=== PATIENT | female | born 1985 | race Caucasian/White ===

== ENCOUNTER 2016-03-25 10:59 | Emergency (ER) | payer OTHER | END 2016-03-25 12:06 | disposition left against medical advice (07) | LOC: UCEAST 10:59 | DX: L98.9 Disorder of the skin and subcutaneous tissue, unspecified (principal); Z53.21 Procedure and treatment not carried out due to patient leaving prior to being seen by health care provider ==

== ENCOUNTER 2016-03-25 12:23 | Emergency (ER) | payer OTHER ==
[2016-03-25 13:49] VITALS: BP 93/58
[2016-03-25] MEDS ORDERED: Ketorolac INJ* 60 MG/2 ML VIAL IM ONE (15:48)
--- NOTE | 2016-03-25 17:10 | ED ---
Skin Complaint - HPI Summary HPI Summary: 30 F presents with recent abscess of right buttock. She had a previous pilondial cyst that was treated with surgery many years ago in [place]. She denies any fever, constipation, or diarrhea. She was on a course of doxycycline 4 weeks ago that decreased abscess but it came back. - History of Current Complaint Chief Complaint: EDGeneral Time Seen by Provider: 03/25/16 15:37 Stated Complaint: ABCESS, Hx Last Menstrual Period: 02/19/15 Pain Intensity: 8 - Allergy/Home Medications Allergies/Adverse Reactions: Allergies Allergy/AdvReac Type Severity Reaction Status Date / Time Acetaminophen Allergy Intermediate Vomiting Verified 11/01/14 15:26 Tramadol Allergy Hives Verified 11/01/14 15:26 PMH/Surg Hx/FS Hx/Imm Hx Endocrine/Hematology History: Denies: Hx Blood Disorders, Hx Diabetes, Other Endocrine/Hematological Disorders Cardiovascular History: Reports: Other Cardiovascular Problems/Disorders - PALPITATIONS Denies: Hx Hypertension Respiratory History: Reports: Hx Asthma Denies: Other Respiratory Problems/Disorders GI History: Denies: Other GI Disorders History: Denies: Other Problems/Disorders Musculoskeletal History: Reports: Hx Arthritis - Back, Hx Scoliosis - TOLD SHE HAS SCOLIOSIS Denies: Other Musculoskeletal History Sensory History: Denies: Other Sensory Impairments Opthamlomology History: Denies: Other Sensory Impairments Neurological History: Reports: Hx Migraine Denies: Hx Headaches, Other Neuro Impairments/Disorders Psychiatric History: Reports: Hx Anxiety, Hx Depression, Hx Bipolar Disorder Denies: Other Psychiatric Issues/Disorders - Surgical History Surgery Procedure, Year, and Place: Infectious Disease History: No Infectious Disease History: Reports: Hx Hepatitis - hep c Denies: History Other Infectious Disease, Traveled Outside the in Last 30 Days - Family History Known Family History: Positive: Unknown, Other - leukemia, blood clots ( grandfather) - Social History Alcohol Use: None Hx Substance Use: Yes Substance Use Type: Reports: None Substance Use Comment - Amount & Last Used: 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, 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 Smoking Status (MU): Former Smoker Type: Cigarettes Amount Used/How Often: 1/2 PPD Have You Smoked in the Last Year: Yes Review of Systems Negative: Fever Negative: Chest Pain Negative: Shortness Of Breath Positive: Other - abscess of right buttock All Other Systems Reviewed And Are Negative: Yes Physical Exam Triage Information Reviewed: Yes Vital Signs On Initial Exam: Initial Vitals Temp Pulse Resp BP Pulse Ox 97.8 F 107 18 122/78 100 03/25/16 12:25 03/25/16 12:25 03/25/16 12:25 03/25/16 12:25 03/25/16 12:25 Vital Signs Reviewed: Yes Appearance: Positive: Well-Appearing Skin: Positive: Other - 3 cm by 3cm abscess located on glutteal cleft on right side of buttock Head/Face: Positive: Normal Head/Face Inspection Eyes: Positive: Normal, Conjunctiva Clear ENT: Positive: Normal ENT inspection, Pharynx normal, TMs normal Respiratory/Lung Sounds: Positive: Clear to Auscultation, Breath Sounds Present Cardiovascular: Positive: Normal, RRR Procedures - Incision and Drainage Site: right buttock abscess Anesthesia: Topical Instrument(s): Scalpel Diagnostics - Vital Signs Vital Signs Temp Pulse Resp BP Pulse Ox 03/25/16 13:48 98.5 F 88 16 93/58 100 03/25/16 12:25 97.8 F 107 18 122/78 100 - Laboratory Lab Statement: Any lab studies that have been ordered have been reviewed, and results considered in the medical decision making process. Course/Dx - Course Course Of Treatment: 30 F presents with abscess to right buttock. denies any fever. area of loculated noted on exam, cleaned and placed 2 cm laceration in center of abscess which drained large amount of foul smelling material, did not place packing due to location of abscess, obtained culture, will place on doxcycline due to improvement on antibiotic before, will have follow up with primary and potential surgery for recurrency of abscess although this abscess is not a pilondial cyst, patient understands and agrees with plan - Differential Diagnoses - Skin Complaint Differential Diagnoses: Abscess, Cellulitis, Contact Dermatitis - Diagnoses Provider Diagnoses: Abscess of buttock, left Discharge - Discharge Plan Condition: Good Disposition: HOME Prescriptions: DOXYcycline CAP(*) [DOXYcycline 100MG CAP(*)] 100 mg PO BID #19 cap Patient Education Materials: Abscess Incision and Drainage (ED) Referrals: No Primary Care Phys,NOPCP [Primary Care Provider] - Additional Instructions: Take antibiotics twice a day for 10 days Follow up with primary Consider following up with surgery in the future if reoccurs Return to ED if develop fever or any new or worsening symptoms Addendum entered and electronically signed by Nidia Munoz PA 03/26/16 08: 36: ED Addendum Addendum: Diagnosis: abscess of right buttock
[2016-03-25] MEDS ORDERED: DOXYcycline CAP(*) 100 MG PO ONE (17:15)
--- NOTE | 2016-03-28 14:16 | ED ---
Progress - Progress Note Progress Note: Pt's wound cx reveals Finegoldia Magna - she had an abscess that was I&D'd on day of assessment and tx - she was restarted on doxycycline as pt reports this has helped in the past. The current organism identified appears to be most susceptible to PCN, cephalosporins and clindamycin. Called pt to update sx but phone stated "voicemail box has not been set up -please try again later". Her next of kin was then called, Anjali Saulo. Anjali agreed to contact pt and relay the message for her to call to discuss test results. Will mail letter to pt as well. If pt is improving s/p I&D and with taking doxycycline, no change in plan. However, if she' not improving, will switch anbx and have her f/u w/ surgery. Course/Dx - Course Course Of Treatment: 30 F presents with abscess to right buttock. denies any fever. area of loculated noted on exam, cleaned and placed 2 cm laceration in center of abscess which drained large amount of foul smelling material, did not place packing due to location of abscess, obtained culture, will place on doxcycline due to improvement on antibiotic before, will have follow up with primary and potential surgery for recurrency of abscess although this abscess is not a pilondial cyst, patient understands and agrees with plan - Diagnoses Provider Diagnoses: Abscess of buttock, left Addendum entered and electronically signed by Anita Saucedo PA 03/29/16 15:44: ED Addendum Addendum: tamara Yuan, mailed letter to pt. Addendum entered and electronically signed by Blue Pinto MD 04/02/16 22: 54: ED Addendum Addendum: Suzanne
== END 2016-03-25 17:26 | disposition home or self-care (01) ==
LOC: ED 12:23
DX: L02.31 Cutaneous abscess of buttock (principal); Z87.891 Personal history of nicotine dependence; B19.20 Unspecified viral hepatitis C without hepatic coma
CPT/HCPCS: 10060; 87070; 87076; 87205; 87640; 87641; 96372; 99282; A9270-GY; J1885

== ENCOUNTER 2016-04-17 16:50 | Emergency (ER) | payer OTHER ==
[2016-04-17 17:41] VITALS: BP 103/61
== END 2016-04-17 22:10 | disposition left against medical advice (07) ==
LOC: ED 16:50
DX: R42 Dizziness and giddiness (principal); Z53.21 Procedure and treatment not carried out due to patient leaving prior to being seen by health care provider

== ENCOUNTER 2016-06-20 06:41 | Day surgery (SDC) | payer OTHER ==
[~2016-06-20 06:41] MED LIST: Buffered Lidocaine 1% SYRIN* 3 ML/SYR SYRINGE INTRADERM ONE
[2016-06-20] MEDS ORDERED: ceFOXitin 2 GM IVPREMIX* 2 GM/50 ML BAG ONE (06:48)
[2016-06-20] MEDS ORDERED: Bupivacaine 0.25% EPI 200,000* 30 ML SDV ONE (07:24)
[2016-06-20] MEDS ORDERED: Lidocaine 2% JELLY* 6 ML JELLY TOPICAL ONE (07:24)
[2016-06-20] MEDS ORDERED: Chloroprocaine 2%* 20 ML VIAL ONE (07:30)
[2016-06-20] MEDS ORDERED: Midazolam* 1 MG/ML 5 ML VIAL (5 MG) ONE (07:30)
[2016-06-20] MEDS ORDERED: Propofol* 10 MG/ML 20 ML BTL IV PUSH ONE (07:43)
[2016-06-20] MEDS ORDERED: Lidocaine 2% PF * 5 ML VIAL ONE (07:43)
[2016-06-20] MEDS ORDERED: Ketorolac INJ* 30 MG/ML 1 ML VIAL ONE (09:16)
[2016-06-20 10:32] VITALS: BP 98/60
--- NOTE | 2016-06-20 11:42 | OP ---
DATE OF OPERATION: 06/20/16 - [facility] DATE OF : 85 SURGEON: Kanu Wallace MD [employer]OX [employer]UCK [employer]NER OPERATOR: None. ANESTHESIOLOGIST: Dr. Alegria. ANESTHESIA: Spinal anesthetic, local infiltration. PRE-OP DIAGNOSIS: Anal fistula. POST-OP DIAGNOSIS: Anal fistula. OPERATIVE PROCEDURE: Anoscopy and fistulotomy. DESCRIPTION OF PROCEDURE: The patient was supine on the operating table. After adequate spinal anesthetic, compression stockings, Lavern Hugger warmer and intravenous antibiotics, she was put in the prone celio-knife position with the buttocks taped apart. Anoscopy was carried out. There was an external- appearing fistulous tract at approximately the 2 o'clock position, may be 4 cm from the anus. A probe was placed and no internal communication was able to be identified. An angiocatheter was used to inject peroxide into the site under pressure, and, again, no internal communication was identified. This cavity was then filleted open and the cavity was approximately 1 x 3 cm with a fibrotic base and chronic soupy granulation. This was swabbed out to eliminate the soupy granulation and was thus left open. On the left side, approximately 11 o'clock position, 3 cm from the anal verge, there was an area of firm induration that appears to be maybe a little subcutaneous cyst or fibrosis. This was opened up, but no pus was identified. This was left open. Local anesthetic was administered. Bulky gauze dressing was placed. She tolerated the procedure well and was brought to Recovery in good condition. No complications. No drains. No pathologic specimens. Sponge and instrument counts correct. Estimated blood loss was 10 mL. CC: Dr. Barnett* [id number]/[facility] #: [id number] [facility]
== END 2016-06-20 11:27 | disposition home or self-care (01) ==
LOC: OR 06:41
PROVIDERS: ATTEND Surgery
DX: K60.3 Anal fistula (principal); R00.2 Palpitations; J45.909 Unspecified asthma, uncomplicated; F17.210 Nicotine dependence, cigarettes, uncomplicated; B18.2 Chronic viral hepatitis C; F31.9 Bipolar disorder, unspecified; Z33.1 Pregnant state, incidental
CPT/HCPCS: J0694; J1885; J2250; J2400; J2704

== ENCOUNTER 2016-11-24 22:09 | Inpatient (IN) | payer OTHER ==
[2016-11-24] MEDS ORDERED: ceFOXitin 2 GM IVPREMIX* 2 GM/50 ML BAG ONE (22:35)
[2016-11-24] MEDS ORDERED: ceFOXitin 2 GM IVPREMIX* 2 GM/50 ML BAG IVPB ONE (22:36)
[2016-11-24] MEDS ORDERED: Sodium Citrate/Citric Acid* 15 ML UDC PO ONE (22:36)
[2016-11-24] MEDS ORDERED: Sodium Citrate/Citric Acid* 15 ML UDC ONE (22:36)
[2016-11-24 22:52] LABS: Hematocrit 36 % (35-47); Hemoglobin 12.6 g/dl (12.0-16.0); Mean Corpuscular HGB Conc 35 g/dl (31-36); Mean Corpuscular Hemoglobin 32 pg (27-31); Mean Corpuscular Volume 93 fL (80-97); Mean Platelet Volume 10 um3 (7.4-10.4); Red Blood Count 3.89 10^6/ul (4.0-5.4); Red Cell Distribution Width 13 % (10.5-15); White Blood Count 9.7 10^3/ul (3.5-10.8)
[2016-11-24] MEDS ORDERED: Morphine PF AMP (0.5MG/ML)* 5 MG/10 ML AMP ONE (22:52)
[2016-11-24] MEDS ORDERED: Phenylephrine IV* 40 MCG/ML 10 ML SYRINGE ONE (22:52)
[2016-11-24] MEDS ORDERED: OXYTOCIN* 10 UNITS/ML 1 ML VIAL ONE (22:52)
[2016-11-24] MEDS ORDERED: fentaNYL* 50 MCG/ML 2 ML VIAL (100 MCG VIAL) IV PRN (23:30)
[2016-11-24] MEDS ORDERED: Ketorolac INJ* 30 MG/ML 1 ML VIAL IV PRN (23:30)
[2016-11-24] MEDS ORDERED: Ondansetron INJ* 2 MG/ML VIAL IV PRN ×2 (23:30→23:32)
[2016-11-24] MEDS ORDERED: oxyCODONE TAB* 5 MG TAB PO PRN (23:32)
[2016-11-24] MEDS ORDERED: diPHENhydraMINE IV* 50 MG/ML 1 ml VIAL (BENADRYL) IV PRN (23:32)
[2016-11-24] MEDS ORDERED: Naloxone* 0.4 MG/ML 1 ML VIAL IV PRN (23:32)
[2016-11-25] MEDS ORDERED: Witch Hazel PAD* JAR TOPICAL PRN (00:12)
[2016-11-25] MEDS ORDERED: Tetan/Diph/Pertus SYR(Tdap)* 0.5 ML SYR(BOOSTRIX) use SYR IM ONE (00:12)
[2016-11-25] MEDS ORDERED: Acetaminophen TAB* 325 MG PO PRN (00:12)
[2016-11-25] MEDS ORDERED: Measles, Mumps,Rubella VACC* 0.5 ML/VIAL SUBCUT ONE (00:12)
[2016-11-25] MEDS ORDERED: Dibucaine 1% 28.35 GM TUBE PR PRN (00:12)
[2016-11-25] MEDS ORDERED: Glycerin ADULT SUPP PR PRN (00:12)
[2016-11-25] MEDS ORDERED: Oxytocin in LR* 20 UNITS/1,000 ML BAG IVPB SCH (01:00)
[2016-11-25] MEDS: Nicotine PATCH 7 MG/24 HR* PATCH TRANSDERM SCH ×2 (05:25→09:18)
--- NOTE | 2016-11-25 06:54 | OP ---
DATE OF OPERATION: 11/24/16 - ROOM #[facility] #114 DATE OF : 85 SURGEON: Levi Metcalf MD CANE WEIGHER: Migdalia Davies CNM ANESTHESIA: Spinal. PRE-OP DIAGNOSIS: Elective repeat section and desires permanent sterilization. POST-OP DIAGNOSIS: Elective repeat section and desires permanent sterilization. OPERATIVE PROCEDURE: Low transverse section and bilateral tubal ligation. ESTIMATED BLOOD LOSS: 600 cc. FINDINGS: This is a 31-year-old 2, para 1 with previous section desired an elective repeat and bilateral tubal ligation. She presented at 37 plus weeks in active labor. She was 7 cm dilated upon admission to Labor and Delivery, and she and I discussed the risks, benefits, alternatives, indications for section and bilateral tubal ligation and we proceeded with procedure as planned. At the time of procedure, she had a viable male. Apgars were 9 and 9, and weight was 7 pounds 0 ounces. She had normal appearing uterus, fallopian tubes, and ovaries. DESCRIPTION OF PROCEDURE: The patient identified, procedure identified as low transverse section. The patient was taken to the operating room, prepped and draped in the usual fashion in the left lateral recumbent position under spinal anesthesia. A Pfannenstiel incision was made on the abdomen and carried down through fat, fascia, and peritoneum. A bladder flap was created with a sharp and blunt dissection. A transverse incision was made in the lower uterine segment, extended laterally using blunt dissection. The cord was doubly clamped and cut, and the infant was delivered through the incision with ease. Cord was doubly clamped and cut, and the infant was handed to the awaiting sales data analyst. Cord blood was obtained. Placenta delivered spontaneously. The uterus was wiped out with wet lap sponge. The uterine incision was then closed using 0 Polysorb in a running fashion. A second layer was used to imbricate the first layer. Good hemostasis achieved with 0 Polysorb [id number] sutures. The right fallopian tube was grasped at its fimbriated end with June clamp, clamped, ligated x2 and the fimbria was excised. Same procedure was carried out on the left, following it out to its fimbriated end. Good hemostasis was verified. The uterus was placed back into the abdominal cavity. The uterine incision was again found to be hemostatic by using 0 Polysorb [id number] sutures. The pedicles on the fallopian tubes were inspected and found to be hemostatic. Peritoneum was then closed using 3- 0 Polysorb in a running fashion. Good hemostasis achieved in the subrectus layers. The fascia was closed using 0 Polysorb in a running fashion. Good hemostasis achieved in the subcu. Copious irrigation was utilized and suctioned out and the skin was closed with 4-0 Monocryl in a subcuticular fashion. Mastisol and Steri-Strips were applied, and the patient returned to the recovery room in stable condition. All sponge and instrument counts were correct. [id number]/[facility] #: [id number] [facility]
[2016-11-25] MEDS: Buprenorphine TAB* 8 MG PO SCH (08:57)
[2016-11-25] MEDS: Simethicone TAB* 80 MG TAB.CHEW PO SCH ×4 (08:57→21:29)
[2016-11-25] MEDS: Docusate CAP* 100 MG PO SCH ×3 (08:57→21:29)
[2016-11-25] MEDS: Gabapentin CAP(*) 400 MG PO SCH ×3 (08:58→21:31)
[2016-11-25] MEDS: Ketorolac INJ* 30 MG/ML 1 ML VIAL IV PRN ×2 (08:58→14:43)
[2016-11-25] MEDS ORDERED: Mouth Piece, Nicotine* 1 EACH CARTRIDGE ONE ×2 (09:09→13:21)
[2016-11-25] MEDS: Nicotine Inhaler* 10 MG AMP INH PRN ×3 (09:17→21:29)
[2016-11-25] MEDS ORDERED: Zolpidem TAB* 5 MG PO PRN (15:00)
[2016-11-25] MEDS ORDERED: Buprenorphine TAB* 2 MG TAB.SL PO SCH (18:00)
[2016-11-25] MEDS: Ibuprofen TAB* 600 MG PO PRN (21:29)
[2016-11-26] MEDS: Ibuprofen TAB* 600 MG PO PRN ×2 (03:46→22:07)
[2016-11-26 06:46] LABS: Hematocrit 33 % (35-47); Hemoglobin 11.4 g/dl (12.0-16.0); Mean Corpuscular HGB Conc 35 g/dl (31-36); Mean Corpuscular Hemoglobin 33 pg (27-31); Mean Corpuscular Volume 94 fL (80-97); Mean Platelet Volume 10 um3 (7.4-10.4); Red Blood Count 3.47 10^6/ul (4.0-5.4); Red Cell Distribution Width 13 % (10.5-15); White Blood Count 6.1 10^3/ul (3.5-10.8)
[2016-11-26 08:11] VITALS: BP 121/71
[2016-11-26] MEDS: Nicotine PATCH 7 MG/24 HR* PATCH TRANSDERM SCH (08:17)
[2016-11-26] MEDS: Simethicone TAB* 80 MG TAB.CHEW PO SCH ×3 (08:58→19:44)
[2016-11-26] MEDS: Buprenorphine TAB* 8 MG PO SCH (08:59)
[2016-11-26] MEDS ORDERED: Ferrous Gluconate TAB* 324 MG TAB PO SCH (09:00)
[2016-11-26] MEDS: Docusate CAP* 100 MG PO SCH ×3 (09:00→19:44)
[2016-11-26] MEDS: Gabapentin CAP(*) 400 MG PO SCH ×3 (09:02→19:43)
[2016-11-26] MEDS ORDERED: oxyCODONE TAB* 5 MG TAB ONE (14:44)
[2016-11-26] MEDS: Nicotine Inhaler* 10 MG AMP INH PRN (19:42)
[2016-11-26] MEDS: oxyCODONE TAB* 5 MG TAB PO PRN (19:44)
[2016-11-26] MEDS ORDERED: oxyCODONE TAB* 5 MG TAB PO PRN (20:00)
[2016-11-27] MEDS: oxyCODONE TAB* 5 MG TAB PO PRN ×3 (00:47→10:58)
[2016-11-27] MEDS: Simethicone TAB* 80 MG TAB.CHEW PO SCH ×2 (06:16→09:05)
[2016-11-27] MEDS: Ibuprofen TAB* 600 MG PO PRN (06:26)
[2016-11-27] MEDS: Nicotine Inhaler* 10 MG AMP INH PRN (06:27)
[2016-11-27] MEDS: Nicotine PATCH 7 MG/24 HR* PATCH TRANSDERM SCH (09:04)
[2016-11-27] MEDS: Gabapentin CAP(*) 400 MG PO SCH (10:57)
[2016-11-27] MEDS: Docusate CAP* 100 MG PO SCH (10:59)
== END 2016-11-27 12:59 | disposition home or self-care (01) | DRG 540 ==
LOC: MCHOBOUT 22:09 → MCHOB 22:25 → EEVIPCON 22:25 → MCHOB 11-25 04:20
PROVIDERS: ADMIT Obstetrics & Gynecology; ATTEND Obstetrics & Gynecology
PROC: 10D00Z1 Extraction of Products of Conception, Low, Open Approach (ICD-10-PCS; 2016-11-24)
PROC: 0UB70ZZ Excision of Bilateral Fallopian Tubes, Open Approach (ICD-10-PCS; 2016-11-24)
PROC: 4A1HXCZ Monitoring of Products of Conception, Cardiac Rate, External Approach (ICD-10-PCS; principal; 2016-11-24 22:54)
DX: O34.211 Maternal care for low transverse scar from previous cesarean delivery (principal); F17.210 Nicotine dependence, cigarettes, uncomplicated; O99.334 Smoking (tobacco) complicating childbirth; O99.824 Streptococcus B carrier state complicating childbirth; O77.0 Labor and delivery complicated by meconium in amniotic fluid; Z3A.37 37 weeks gestation of pregnancy; Z37.0 Single live birth; Z88.8 Allergy status to other drugs, medicaments and biological substances; Z30.2 Encounter for sterilization
CPT/HCPCS: 36415; 85025; 86850; 86900; 86901; 88302; A9270-GY; J0694; J1885; J2590; J3010

== ENCOUNTER 2017-07-31 04:44 | Emergency (ER) | payer OTHER ==
[2017-07-31] MEDS ORDERED: predniSONE TAB* 20 MG PO ONE (05:16)
[2017-07-31] MEDS ORDERED: ValACYclovir (*) 1 GM TAB PO ONE (05:16)
--- NOTE | 2017-07-31 05:33 | ED ---
Sharla Young Elizabeth, scribed for Tonie Wilson MD on 07/31/17 at 0515 . Neurological HPI - HPI Summary HPI Summary: This patient is a 31 year old F presenting to [facility] with a chief complaint of right ear pain since 3 days ago. Patient reports strain, sharp pain in the right side of her neck and cheek. Patient reports numbness in right side of tongue and right eyebrow. The patient notes that she had Aniwa Palsy in 2016 on the left side and that her current sensations seem the same. The patient rates the pain 9/10 in severity. Symptoms aggravated by nothing. Symptoms alleviated by nothing. The patient reports that she has been tested for lyme disease before. Patient has been taking ibuprofen for the pain. LNMP was 1 week ago. - History of Current Complaint Chief Complaint: EDEarPain Stated Complaint: GENERAL ILLNESS Hx Obtained From: Patient Hx Last Menstrual Period: 02/19/15 Onset/Duration: Sudden Onset, Started days ago - 3 days ago, Still Present Timing: Constant Onset Severity: Moderate Current Severity: Moderate Neurological Deficit Location: Facial Pain Intensity: 9 Pain Scale Used: 0-10 Numeric Character: Numbness/Tingling - in right eyebrow, right side of tongue, Other: - pain in right ear, right cheek and right neck Aggravating: Nothing Alleviating: Nothing Associated Signs and Symptoms: Positive: Pain - in right cheeck, right side of neck, Numbness - in right eyebrow, right side of tongue - Allergy/Home Medications Allergies/Adverse Reactions: Allergies Allergy/AdvReac Type Severity Reaction Status Date / Time acetaminophen Allergy vomiting, Verified 07/31/17 04:53 tongue swelling, hives lamotrigine [From Lamictal] Allergy Shortness Verified 07/31/17 04:53 of Breath tramadol Allergy hives, Verified 07/31/17 04:53 tongue swelling. PMH/Surg Hx/FS Hx/Imm Hx Endocrine/Hematology History: Denies: Hx Blood Disorders, Hx Diabetes, Other Endocrine/Hematological Disorders Cardiovascular History: Reports: Other Cardiovascular Problems/Disorders - PALPITATIONS Denies: Hx Hypertension Respiratory History: Reports: Hx Asthma - has not need inhaler in a long time Denies: Other Respiratory Problems/Disorders GI History: Reports: Other GI Disorders - anal fistula History: Denies: Other Problems/Disorders Musculoskeletal History: Reports: Hx Arthritis - Back lower, Hx Scoliosis - TOLD SHE HAS SCOLIOSIS Denies: Other Musculoskeletal History Sensory History: Denies: Hx Contacts or Glasses, Hx Hearing Aid, Other Sensory Impairments Opthamlomology History: Denies: Hx Contacts or Glasses, Other Sensory Impairments Neurological History: Reports: Hx Migraine, Hx Nerve Disease - severe nerve damage from waist down Denies: Hx Headaches, Other Neuro Impairments/Disorders Psychiatric History: Reports: Hx Anxiety, Hx Depression - Bipolar disorder, Hx Bipolar Disorder, Hx Substance Abuse Denies: Other Psychiatric Issues/Disorders - Surgical History Surgery Procedure, Year, and Place: 11-12 years ago. pilonidal cyst removed 11-12 years Hx Anesthesia Reactions: No Infectious Disease History: No Infectious Disease History: Reports: Hx Hepatitis - hep C - was recently tested , shows doesn't have anymore Denies: History Other Infectious Disease, Traveled Outside the [place] in Last 30 Days - Family History Known Family History: Positive: Other - leukemia, blood clots (grandfather) - Social History Alcohol Use: None Hx Substance Use: Yes Substance Use Type: Reports: Prescribed Substance Use Comment - Amount & Last Used: Suboxone, in treatment for opiate addiction Smoking Status (MU): Heavy Every Day Tobacco Smoker Type: Cigarettes Amount Used/How Often: 1pack qd Have You Smoked in the Last Year: Yes Review of Systems Negative: Fever Positive: Ear Ache - right ear pain, Other - numbness on right side of tongue Negative: Shortness Of Breath Negative: Vomiting Neurological: Other - pain in right cheek, pain in right side of neck All Other Systems Reviewed And Are Negative: Yes Physical Exam - Summary Physical Exam Summary: VITAL SIGNS: Reviewed. GENERAL: ~Patient is a well-developed and nourished FEMALE who is lying comfortable in the stretcher. Patient is not in any acute respiratory distress. HEAD AND FACE: No signs of trauma. No ecchymosis, hematomas or skull depressions. No sinus tenderness. Right side peripheral facial weakness EYES: PERRLA, EOMI x 2, No injected conjunctiva, no nystagmus. EARS: Hearing grossly intact. Ear canals and tympanic membranes are within normal limits. MOUTH: Oropharynx within normal limits. NECK: Supple, trachea is midline, no adenopathy, no JVD, no carotid bruit, no c- spine tenderness, neck with full ROM. CHEST: Symmetric, no tenderness at palpation LUNGS: Clear to auscultation bilaterally. No wheezing or crackles. CVS: Regular rate and rhythm, S1 and S2 present, no murmurs or gallops appreciated. ABDOMEN: Soft, non-tender. No signs of distention. No rebound no guarding, and no masses palpated. Bowel sounds are normal. EXTREMITIES: FROM in all major joints, no edema, no cyanosis or clubbing. NEURO: Alert and oriented x 3. Right side peripheral facial weakness. Speech is normal and follows commands. SKIN: Dry and warm Triage Information Reviewed: Yes Vital Signs On Initial Exam: Initial Vitals Temp Pulse Resp BP Pulse Ox 97.7 F 98 16 128/89 100 07/31/17 04:47 07/31/17 04:47 07/31/17 04:47 07/31/17 04:47 07/31/17 04:47 Vital Signs Reviewed: Yes Diagnostics - Vital Signs Vital Signs Temp Pulse Resp BP Pulse Ox 07/31/17 05:01 105 96 07/31/17 04:59 97 114/90 95 07/31/17 04:47 97.7 F 98 16 128/89 100 - Laboratory Lab Statement: Any lab studies that have been ordered have been reviewed, and results considered in the medical decision making process. Course/Dx - Course Course Of Treatment: Patient is a 31 y/o F reporting right ear pain, right-side neck pain, right cheek pain, numbness in right eyebrow and numbness in right- side of tongue since 3 days ago. The patient notes that she had Aniwa Palsy in 2016 on the left side and that her current sensations seem the same. In the ED course the patient was given prednisone and Valtrex. Patient will be discharged home with dx of UTI and Mena Palsy, prescription for artifical tears , prednisone, valtrex and follow up from primary care physician. The patient is agreeable with this plan. - Diagnoses Provider Diagnoses: Mena's palsy Discharge - Sign-Out/Discharge Documenting (check all that apply): Discharge/Admit/Transfer - Discharge Plan Condition: Stable Disposition: HOME Discharge Disposition Comment: discharge home Prescriptions: Artificial Tears* 15 ML BTL [Polyvinyl Alcohol 1.4% OPTH*] 1 drop RIGHT EYE Q2H PRN #1 btl PRN Reason: Dry Eye predniSONE TAB* [Deltasone 20 MG TAB*] 60 mg PO DAILY #18 tab ValACYclovir (*) [Valtrex 1 GM(*)] 1 gm PO TID #20 tab Patient Education Materials: Mena Palsy (ED) Referrals: Guille Tanner MD [Primary Care Provider] - 2 Days Additional Instructions: Follow up with primary care physician in 1-2 days. Return to the emergency department with any new or worsening symptoms. The documentation as recorded by the Sharla cheek Elizabeth accurately reflects the service I personally performed and the decisions made by Katie moreno Abdul, MD.
[2017-07-31 06:04] VITALS: BP 108/79
== END 2017-07-31 06:02 | disposition home or self-care (01) ==
LOC: ED 04:44
DX: G51.0 Bell's palsy (principal); N39.0 Urinary tract infection, site not specified; F17.210 Nicotine dependence, cigarettes, uncomplicated; Z86.19 Personal history of other infectious and parasitic diseases; Z88.6 Allergy status to analgesic agent; Z88.8 Allergy status to other drugs, medicaments and biological substances; Z88.5 Allergy status to narcotic agent
CPT/HCPCS: 86618; 99282; A9270-GY; J7512

== ENCOUNTER 2019-03-08 14:29 | Emergency (ER) | payer OTHER ==
[2019-03-08] MEDS ORDERED: NS 0.9% 1000 ML** 1,000 ML IV ONE (15:04)
--- NOTE | 2019-03-08 15:04 | ED ---
Abdominal Pain/Female - HPI Summary HPI Summary: Patient complains of left upper quadrant pain radiating down into left thigh 2 days. Left thigh pain lasted yesterday for 6 hours, has since resolved, without return. Patient was seen here on 02/26/19 for left upper quadrant pain, diagnosed with subacute splenic laceration. Patient states pain started weeks before that first evaluation, stating she woke up with that pain. Denied trauma. Surgery was consulted on eval on 02/26 and on recommendation of surgeon patient was discharged with follow-up in a few days. Patient did not follow-up with surgeon. States pain started to resolve but then came back worse yesterday. Pain radiating to left thigh is new onset. Pain is associated with nausea, sometimes worse after eating. Denies trauma, fever, cough, sore throat , CP, SOB, V/D, change in urine, change in BM, vaginal symptoms. Medical history is asthma. Abdominal surgical history C-sections. Patient has prescription for Suboxone which was filled on 02/22/19, but patient denies taking Suboxone. - History of Current Complaint Chief Complaint: EDAbdPain Stated Complaint: LACERATION SPLEEN, LEFT LEG PAIN Time Seen by Provider: 03/08/19 15:02 Hx Obtained From: Patient Hx Last Menstrual Period: 02/19/15 Onset/Duration: Sudden Onset, Lasting Days Timing: Constant Severity Initially: Severe Severity Currently: Severe Pain Intensity: 10 Pain Scale Used: 0-10 Numeric Location: Discrete At: LUQ Radiates: Yes Radiates to: Other Character: Sharp Aggravating Factor(s): Food, Movement Alleviating Factor(s): Nothing Associated Signs and Symptoms: Positive: Nausea Allergies/Adverse Reactions: Allergies Allergy/AdvReac Type Severity Reaction Status Date / Time acetaminophen Allergy vomiting, Verified 03/08/19 14:40 tongue swelling, hives lamotrigine [From Lamictal] Allergy Shortness Verified 03/08/19 14:40 of Breath tramadol Allergy hives, Verified 03/08/19 14:40 tongue swelling. PMH/Surg Hx/FS Hx/Imm Hx Endocrine/Hematology History: Denies: Hx Blood Disorders, Hx Diabetes, Other Endocrine/Hematological Disorders Cardiovascular History: Reports: Other Cardiovascular Problems/Disorders - PALPITATIONS Denies: Hx Hypertension Respiratory History: Reports: Hx Asthma - has not need inhaler in a long time Denies: Other Respiratory Problems/Disorders GI History: Reports: Other GI Disorders - anal fistula History: Denies: Hx Renal Disease, Other Problems/Disorders Musculoskeletal History: Reports: Hx Arthritis - Back lower, Hx Scoliosis - TOLD SHE HAS SCOLIOSIS Denies: Other Musculoskeletal History Sensory History: Denies: Hx Contacts or Glasses, Hx Hearing Aid, Other Sensory Impairments Opthamlomology History: Denies: Hx Contacts or Glasses, Other Sensory Impairments Neurological History: Reports: Hx Migraine, 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 pilonidal cyst removed 11-12 years Hx Anesthesia Reactions: No - Immunization History Date of Influenza Vaccine: none Infectious Disease History: No Infectious Disease History: Reports: Hx Hepatitis - hep C - was recently tested , shows doesn't have anymore Denies: History Other Infectious Disease, Traveled Outside the [place] in Last 30 Days - Family History Known Family History: Positive: Unknown, Other - leukemia, blood clots ( grandfather) - Social History Alcohol Use: None Hx Substance Use: Yes Substance Use Type: Reports: Prescribed Substance Use Comment - Amount & Last Used: Suboxone, in treatment for opiate addiction Smoking Status (MU): Heavy Every Day Tobacco Smoker Type: Cigarettes Amount Used/How Often: 1pack qd Have You Smoked in the Last Year: Yes Review of Systems Constitutional: Negative Eyes: Negative ENT: Negative Cardiovascular: Negative Respiratory: Negative Positive: Abdominal Pain, Nausea Genitourinary: Negative Musculoskeletal: Negative Skin: Negative Neurological: Negative Psychological: Normal All Other Systems Reviewed And Are Negative: Yes Physical Exam - Summary Physical Exam Summary: Tenderness in left upper quadrant. Abdominal exam otherwise unremarkable. Triage Information Reviewed: Yes Vital Signs On Initial Exam: Initial Vitals Temp Pulse Resp BP Pulse Ox 97.3 F 92 18 122/96 97 03/08/19 14:34 03/08/19 14:34 03/08/19 14:34 03/08/19 14:34 03/08/19 14:34 Vital Signs Reviewed: Yes Appearance: Positive: Well-Appearing Skin: Positive: Warm Head/Face: Positive: Normal Head/Face Inspection Eyes: Positive: Normal Neck: Positive: Supple Respiratory/Lung Sounds: Positive: Clear to Auscultation Cardiovascular: Positive: Normal Abdomen Description: Positive: Other: Musculoskeletal: Positive: Normal Neurological: Positive: Normal Psychiatric: Positive: Normal AVPU Assessment: Alert - [place] Coma Scale Best Eye Response: 4 - Spontaneous Best Motor Response: 6 - Obeys Commands Best Verbal Response: 5 - Oriented Coma Scale Total: 15 Procedures - Sedation Patient Received Moderate/Deep Sedation with Procedure: No Diagnostics - Vital Signs Vital Signs Temp Pulse Resp BP Pulse Ox 03/08/19 14:34 97.3 F 92 18 122/96 97 - Laboratory Result Diagrams: 03/08/19 15:29 03/08/19 15:29 Lab Statement: Any lab studies that have been ordered have been reviewed, and results considered in the medical decision making process. Abdominal Pain Fem Course/Dx - Course Course Of Treatment: Patient complains of left upper quadrant pain radiating down into left thigh 2 days. Left thigh pain lasted yesterday for 6 hours, has since resolved, without return. Patient was seen here on 02/26/19 for left upper quadrant pain, diagnosed with subacute splenic laceration. Patient states pain started weeks before that first evaluation, stating she woke up with that pain. Denied trauma. Surgery was consulted on eval on 02/26 and on recommendation of surgeon patient was discharged with follow-up in a few days. Patient did not follow-up with surgeon. States pain started to resolve but then came back worse yesterday. Pain radiating to left thigh is new onset. Pain is associated with nausea, sometimes worse after eating. Denies trauma, fever, cough, sore throat, CP, SOB, V/D, change in urine, change in BM, vaginal symptoms. Medical history is asthma. Abdominal surgical history C-sections. Patient has prescription for Suboxone which was filled on 02/22/19, but patient denies taking Suboxone. Vital signs within normal limits. Labs unremarkable. No change in hemoglobin. CT abdomen and pelvis indicates no significant change on splenic laceration or hematoma. Positive for new left ovarian cyst. Patient allergic to Tylenol. Advised patient to not take ibuprofen or NSAIDs due to slammer splenic laceration. Patient on Suboxone. Do not prescribe narcotics. Patient advised to follow-up with surgeon regarding further evaluation of hematoma. - Diagnoses Provider Diagnoses: Ovarian cyst, Spleen hematoma-closed Discharge ED - Sign-Out/Discharge Documenting (check all that apply): Patient Departure - Discharge Plan Condition: Stable Disposition: HOME Patient Education Materials: Ovarian Cyst (ED), Hematoma (ED) Referrals: Jaime Seo MD [Primary Care Provider] - Jessica Ibarra MD [Medical Doctor] - Additional Instructions: Take Tylenol 650 mg every 6 hours for left ovarian cyst pain. Follow-up with surgery Dr Ibarra for further evaluation of hematoma of the spleen. - Billing Disposition and Condition Condition: STABLE Disposition: Home
[2019-03-08] MEDS ORDERED: Morphine 4 MG/ML VIAL (1 ml) 4 MG/ML VIAL IV ONE (15:29)
[2019-03-08] MEDS ORDERED: Ondansetron INJ* 2 MG/ML VIAL IV ONE (15:29)
[2019-03-08 15:47] LABS: ABS Eosinophils 0.1 10^3/ul (0-0.6); ABS Lymphocytes 0.6 10^3/ul (1.0-4.8); ABS Monocytes 0.2 10^3/ul (0-0.8); ABS Neutrophils 3.3 10^3/ul (1.5-7.7); Eosinophil % 2.8 %; Hematocrit 41 % (35-47); Hemoglobin 13.8 g/dL (12.0-16.0); Lymphocyte % 13.1 %; Mean Corpuscular HGB Conc 34 g/dL (31-36); Mean Corpuscular Hemoglobin 31 pg (27-31); Mean Corpuscular Volume 90 fL (80-97); Mean Platelet Volume 8.3 fL (7.4-10.4); Nucleated Red Blood Cells % 0.1; Platelet Count 168 10^3/uL (150-450); Red Blood Count 4.52 10^6 /uL (3.70-4.87); Red Cell Distribution Width 15 % (10-15); White Blood Count 4.2 10^3/uL (3.5-10.8)
[2019-03-08 15:54] LABS: INR 1.07 (0.82-1.09)
[2019-03-08 16:10] LABS: HCG Pregnancy < 0.60 mIU/mL
[2019-03-08 16:12] LABS: ALT 9 U/L (7-52); AST 12 U/L (13-39); Albumin/Globulin Ratio 1.4 (1-3); Alkaline Phosphatase 43 U/L (34-104); Anion Gap 5 mmol/L (2-11); BUN/Creatinine Ratio 8.3 (8-20); Blood Urea Nitrogen 6 mg/dL (6-24); C Reactive Protein 21.71 mg/L (<8.01); CO2 Carbon Dioxide 31 mmol/L (22-32); Calcium 9.2 mg/dL (8.6-10.3); Chloride 99 mmol/L (101-111); EGFR African American 112.9 (>60); EGFR Non-African American 93.3 (>60); Globulin 2.8 g/dL (2-4); Glucose 91 mg/dL (70-100); Potassium 3.9 mmol/L (3.5-5.0); Sodium 135 mmol/L (135-145); Total Protein 6.8 g/dL (6.4-8.9)
[2019-03-08] MEDS ORDERED: Iohexol 300* (CONTRAST) 10 ML SDV IV ONE (16:19)
[2019-03-08 18:01] LABS: Urine Appearance Cloudy; Urine Bilirubin Negative (Negative); Urine Blood Negative (Negative); Urine Color Straw; Urine Glucose Negative (Negative); Urine Ketones Negative (Negative); Urine Nitrite Negative (Negative); Urine Protein Negative (Negative); Urine Specific Gravity 1.035 (1.010-1.030); Urine Urobilinogen Negative (Negative)
[2019-03-08 18:10] VITALS: BP 102/98
== END 2019-03-08 18:09 | disposition home or self-care (01) ==
LOC: ED 14:29
DX: N83.01 Follicular cyst of right ovary (principal); S36.029D Unspecified contusion of spleen, subsequent encounter; S36.039D Unspecified laceration of spleen, subsequent encounter; X58.XXXD Exposure to other specified factors, subsequent encounter; M79.652 Pain in left thigh; R11.0 Nausea; Z88.6 Allergy status to analgesic agent; Z88.5 Allergy status to narcotic agent; Z88.8 Allergy status to other drugs, medicaments and biological substances; F17.210 Nicotine dependence, cigarettes, uncomplicated
CPT/HCPCS: 36415; 74177; 80053; 81003; 83605; 83690; 84702; 85025; 85610; 86140; 96361; 96374; 96375; 99283; J2270; J2405; Q9967

== ENCOUNTER 2021-09-27 13:16 | Inpatient (IN) ==
[2021-09-27 15:27] LABS: ABS Eosinophils 0.1 10^3/ul (0-0.6); ABS Lymphocytes 0.9 10^3/ul (1.0-4.8); ABS Monocytes 0.3 10^3/ul (0-0.8); ABS Neutrophils 2.3 10^3/ul (1.5-7.7); Eosinophil % 3.2 %; Hematocrit 39 % (35-47); Hemoglobin 12.9 g/dL (12.0-16.0); Lymphocyte % 24.4 %; Mean Corpuscular HGB Conc 33 g/dL (31-36); Mean Corpuscular Hemoglobin 30 pg (27-31); Mean Corpuscular Volume 91 fL (80-97); Mean Platelet Volume 8.3 fL (7.4-10.4); Nucleated Red Blood Cells % 0.1; Platelet Count 182 10^3/uL (150-450); Red Blood Count 4.31 10^6 /uL (3.70-4.87); Red Cell Distribution Width 13 % (10-15); White Blood Count 3.6 10^3/uL (3.5-10.8)
[2021-09-27] MEDS ORDERED: cefTRIAXone 1 gm/50 mL D5W 1 GM/50 ML BAG IV ONE (15:27)
[2021-09-27 16:14] LABS: Albumin 3.9 g/dL (3.2-5.2); Albumin/Globulin Ratio 1.3 (1-3); C Reactive Protein 22.01 mg/L (<8.01); Calcium 9.2 mg/dL (8.6-10.3); Globulin 3.1 g/dL (2-4); Total Bilirubin 0.4 mg/dL (0.2-1.0)
[2021-09-27 17:03] LABS: Erythrocyte Sed Rate 31 mm/Hr (0-19)
[2021-09-27] MEDS ORDERED: Ondansetron 4 mg VIAL 2 MG/ML 2 ml VIAL IV PRN (17:41)
[2021-09-27] MEDS ORDERED: NS 0.9% 1000 ml BAG 1,000 ML IV SCH (17:45)
[2021-09-27] MEDS ORDERED: Nicotine GUM 4MG FRUIT FLAVOR PO PRN (18:03)
[2021-09-27] MEDS ORDERED: Nicotine Lozenge mini 4 MG LOZNG.MINI MT PRN (18:03)
[2021-09-27] MEDS ORDERED: Iohexol 350 (CONTRAST) 500 ML MDV IV ONE (18:13)
[2021-09-27] MEDS ORDERED: Morphine ORAL.SOLN 10 mg 2 mg/ml UDC 5 ml (10 mg) PO PRN (19:41)
[2021-09-27] MEDS ORDERED: Naloxone Nasal Spray 4 MG/0.1 ML NASAL.SPR INTRANASAL PRN (19:52)
[2021-09-27 20:42] LABS: Hepatitis C Antibody Reactive (Negative)
[2021-09-28 06:18] LABS: ABS Eosinophils 0.1 10^3/ul (0-0.6); ABS Lymphocytes 0.9 10^3/ul (1.0-4.8); ABS Monocytes 0.3 10^3/ul (0-0.8); ABS Neutrophils 1.8 10^3/ul (1.5-7.7); Eosinophil % 3.7 %; Hematocrit 35 % (35-47); Hemoglobin 12.5 g/dL (12.0-16.0); Lymphocyte % 28.5 %; Mean Corpuscular HGB Conc 36 g/dL (31-36); Mean Corpuscular Hemoglobin 33 pg (27-31); Mean Corpuscular Volume 91 fL (80-97); Mean Platelet Volume 8.7 fL (7.4-10.4); Nucleated Red Blood Cells % 0.1; Platelet Count 159 10^3/uL (150-450); Red Blood Count 3.82 10^6 /uL (3.70-4.87); Red Cell Distribution Width 14 % (10-15); White Blood Count 3.1 10^3/uL (3.5-10.8)
[2021-09-28 06:36] LABS: Albumin 3.3 g/dL (3.2-5.2); Albumin/Globulin Ratio 1.2 (1-3); Calcium 8.6 mg/dL (8.6-10.3); Direct Bilirubin 0.1 mg/dL (0.03-0.18); Globulin 2.8 g/dL (2-4); Indirect Bilirubin 0.2 mg/dL (0.3-1.0); Potassium 4.3 mmol/L (3.5-5.0); Total Bilirubin 0.3 mg/dL (0.2-1.0); Total Protein 6.1 g/dL (6.4-8.9); eGFR CKD-EPI 78.1 (>60)
[2021-09-28] MEDS: Nicotine PATCH 21 MG/24 HR PATCH TRANSDERM SCH (08:19)
[2021-09-28] MEDS ORDERED: NS 0.9% 1000 ml BAG 1,000 ML IV SCH (11:28)
[2021-09-28] MEDS: cefTRIAXone 1 gm/50 mL D5W 1 GM/50 ML BAG IV SCH (16:27)
[2021-09-28] MEDS ORDERED: Gadoteridol (CONTRAST) 279.3 MG/ML 10 ML IV ONE (21:22)
[2021-09-29 05:48] LABS: Hematocrit 35 % (35-47); Hemoglobin 12.5 g/dL (12.0-16.0); Mean Corpuscular HGB Conc 35 g/dL (31-36); Mean Corpuscular Hemoglobin 32 pg (27-31); Mean Corpuscular Volume 90 fL (80-97); Platelet Count 159 10^3/uL (150-450); Red Blood Count 3.93 10^6 /uL (3.70-4.87); Red Cell Distribution Width 13 % (10-15); White Blood Count 2.9 10^3/uL (3.5-10.8)
[2021-09-29 06:11] LABS: C Reactive Protein 13.24 mg/L (<8.01); Calcium 8.6 mg/dL (8.6-10.3); Magnesium 1.9 mg/dL (1.9-2.7); Potassium 4.4 mmol/L (3.5-5.0); eGFR CKD-EPI 99.4 (>60)
[2021-09-29 06:38] LABS: ABS Eosinophils 0.1 10^3/ul (0-0.6); ABS Lymphocytes 1.1 10^3/ul (1.0-4.8); ABS Monocytes 0.2 10^3/ul (0-0.8); ABS Neutrophils 1.6 10^3/ul (1.5-7.7); Eosinophil % 2.6 %; Nucleated Red Blood Cells % 0.2
[2021-09-29] MEDS: Nicotine PATCH 21 MG/24 HR PATCH TRANSDERM SCH (09:05)
[2021-09-29 11:08] VITALS: BP 106/67
[2021-09-29] MEDS: cefTRIAXone 1 gm/50 mL D5W 1 GM/50 ML BAG IV SCH (14:45)
[2021-09-29 16:34] LABS: HIV 4th Generation Nonreactive (Nonreactive)
== END 2021-09-29 15:32 | disposition left against medical advice (07) | DRG 383 ==
LOC: ED 13:16 → EDHOLD 13:16 → SSU 22:08
PROVIDERS: ADMIT Internal Medicine; ATTEND Internal Medicine

== ENCOUNTER 2022-02-04 15:01 | Inpatient (IN) ==
[2022-02-04] MEDS ORDERED: Lactated Ringers 1000 ml BAG 1,000 ML IV ONE ×2 (15:39→18:07)
[2022-02-04 15:57] LABS: Venous Bicarbonate HCO3 30.2 mmol/L (24-28)
[2022-02-04 15:57] LABS: ABS Basophils 0.1 10^3/ul (0-0.2); ABS Lymphocytes 0.4 10^3/ul (1.0-4.8); ABS Monocytes 0.3 10^3/ul (0-0.8); ABS Neutrophils 5.6 10^3/ul (1.5-7.7); Eosinophil % 0.1 %; Hematocrit 44 % (35-47); Hemoglobin 15.3 g/dL (12.0-16.0); Lymphocyte % 6.7 %; Mean Corpuscular HGB Conc 35 g/dL (31-36); Mean Corpuscular Hemoglobin 30 pg (27-31); Mean Corpuscular Volume 86 fL (80-97); Mean Platelet Volume 7.9 fL (7.4-10.4); Nucleated Red Blood Cells % 0.2; Platelet Count 189 10^3/uL (150-450); Red Blood Count 5.13 10^6 /uL (3.70-4.87); Red Cell Distribution Width 15 % (10-15); White Blood Count 6.4 10^3/uL (3.5-10.8)
[2022-02-04 16:01] LABS: Carbon Monoxide <4.0 % (<4.0)
[2022-02-04 17:30] LABS: ALT 75 U/L (7-52); AST 230 U/L (13-39); Acetaminophen < 15 mcg/mL; Albumin 3.6 g/dL (3.2-5.2); Albumin/Globulin Ratio 1.1 (1-3); Alcohol, S < 13 mg/dL (<13); Alkaline Phosphatase 48 U/L (35-149); Anion Gap 9 mmol/L (2-11); Blood Urea Nitrogen 13 mg/dL (6-24); CO2 Carbon Dioxide 30 mmol/L (22-32); Calcium 8.6 mg/dL (8.6-10.3); Chloride 92 mmol/L (101-111); Globulin 3.4 g/dL (2-4); Glucose 107 mg/dL (70-100); Magnesium 1.9 mg/dL (1.9-2.7); Potassium 4.5 mmol/L (3.5-5.0); Sodium 131 mmol/L (135-145); eGFR CKD-EPI 122.3 (>60)
[2022-02-04] MEDS ORDERED: cefTRIAXone 1 gm/50 mL D5W 1 GM/50 ML BAG IV ONE (17:45)
[2022-02-04] MEDS ORDERED: Vancomycin 1,500 MG in NS 0.9% 250 ml 250 ML IVPB ONE (17:45)
[2022-02-04 18:06] LABS: Creatine Kinase 11892 U/L (10-223)
[2022-02-04 18:16] LABS: Urine Appearance Clear; Urine Bilirubin 1+ (Small) (Negative); Urine Color Yellow; Urine Glucose Negative (Negative)
[2022-02-04 18:17] LABS: Urine Ketones 2+ (40mg/dL) (Negative)
[2022-02-04 18:18] LABS: Urine Specific Gravity 1.022 (1.002-1.030)
[2022-02-04 18:19] LABS: Urine Nitrite Negative (Negative); Urine Protein 1+ (30 mg/dL) (Negative); Urine Urobilinogen 0.2 (Negative) (Negative)
[2022-02-04 18:29] LABS: Urine Bacteria Absent (Absent); Urine Red Blood Cell Trace(0-2/hpf) (Absent); Urine Squamous Epithelial Cell Present (Absent); Urine White Blood Cell Trace(0-5/hpf) (Absent)
[2022-02-04] MEDS ORDERED: Vancomycin 1000 MG in NS 0.9% 250 ML IVPB ONE (18:30)
[2022-02-04 18:33] LABS: Urine Benzodiazepine Screen Presumptive Positive (None Detect); Urine Cannabinoids Screen Presumptive Positive (None Detect); Urine Opiates Screen Presumptive Positive (None Detect)
[2022-02-04 20:44] LABS: C Reactive Protein 183.03 mg/L (<8.01)
[2022-02-04] MEDS: Lactated Ringers 1000 ml BAG 1,000 ML IV SCH (21:29)
[2022-02-04 22:41] LABS: Erythrocyte Sed Rate 40 mm/Hr (0-19)
[2022-02-04] MEDS: Enoxaparin 40 MG/0.4 ML SYR SUBCUT SCH (22:41)
[2022-02-05] MEDS: Lactated Ringers 1000 ml BAG 1,000 ML IV SCH ×4 (04:11→20:15)
[2022-02-05] MEDS ORDERED: Haloperidol 5 mg/ml SDV IV/IM 5 MG/ML AMP IV SLOW PU ONE (08:27)
[2022-02-05] MEDS ORDERED: Lorazepam PYXIS KEY PRN ×4 (08:28→16:55)
[2022-02-05] MEDS ORDERED: LORazepam 2 mg VIAL 1 ml IV PUSH ONE ×3 (08:28→16:00)
[2022-02-05 09:04] LABS: ABS Lymphocytes 0.5 10^3/ul (1.0-4.8); ABS Monocytes 0.3 10^3/ul (0-0.8); ABS Neutrophils 3.3 10^3/ul (1.5-7.7); Eosinophil % 0.8 %; Hematocrit 37 % (35-47); Hemoglobin 12.5 g/dL (12.0-16.0); Lymphocyte % 11.6 %; Mean Corpuscular HGB Conc 34 g/dL (31-36); Mean Corpuscular Hemoglobin 30 pg (27-31); Mean Corpuscular Volume 86 fL (80-97); Mean Platelet Volume 7.8 fL (7.4-10.4); Platelet Count 136 10^3/uL (150-450); Red Blood Count 4.25 10^6 /uL (3.70-4.87); Red Cell Distribution Width 15 % (10-15); White Blood Count 4.1 10^3/uL (3.5-10.8)
[2022-02-05 09:51] LABS: ALT 78 U/L (7-52); Alkaline Phosphatase 41 U/L (35-149); Blood Urea Nitrogen 8 mg/dL (6-24); CO2 Carbon Dioxide 30 mmol/L (22-32); Chloride 95 mmol/L (101-111); Glucose 98 mg/dL (70-100); Sodium 132 mmol/L (135-145); eGFR CKD-EPI 127.8 (>60)
[2022-02-05 09:54] LABS: Anion Gap 7 mmol/L (2-11)
[2022-02-05 10:08] LABS: Creatine Kinase 8195 U/L (10-223)
[2022-02-05] MEDS ORDERED: Vancomycin per Pharmacy 1 EA NOTE FOLLOW UP PRN (10:12)
[2022-02-05] MEDS ORDERED: Vancomycin 1,000 MG in NS 0.9% 250 ml 250 ML IVPB ONE (10:30)
[2022-02-05 12:22] LABS: Potassium Redraw 3.9 mmol/L (3.5-5.0)
[2022-02-05] MEDS ORDERED: Piperacillin/Tazobac ADVAN 3.375 GM in NS 0.9% 100 ml BAG 100 ML IV ONE (15:49)
[2022-02-05] MEDS ORDERED: Zosyn per Pharmacy NOTE FOLLOW UP SCH (16:00)
[2022-02-05] MEDS ORDERED: Tetan/Diph/Pertus SYR(Tdap) 0.5 ML SYR(BOOSTRIX) use SYR contains LATEX IM ONE (16:42)
[2022-02-05] MEDS: Clindamycin 600 MG/D5W BAG 600 MG/50 ML BAG IV SCH (17:01)
[2022-02-05] MEDS ORDERED: Vancomycin 1000 MG in NS 0.9% 250 ML IVPB SCH (18:00)
[2022-02-05] MEDS ORDERED: cefTRIAXone 1 gm/50 mL D5W 1 GM/50 ML BAG IV SCH (19:30)
[2022-02-05] MEDS ORDERED: ZOSYN 3.375 GM x ONE DOSE over 30 miuntes IV (19:30)
[2022-02-05] MEDS: LORazepam 2 mg VIAL 1 ml IV PUSH PRN (20:28)
[2022-02-05] MEDS: Enoxaparin 40 MG/0.4 ML SYR SUBCUT SCH (20:30)
[2022-02-05] MEDS ORDERED: cefTRIAXone 2 gm/50 mL D5W 2 GM/50 ML BAG IV SCH (21:00)
[2022-02-05] MEDS ORDERED: Dextrose 50% Syringe 50 ml 25 GM/50 ML SYRINGE IV PUSH PRN (21:08)
[2022-02-06] MEDS: ZOSYN 3.375 GM Q8H per EXTENDED INFUSION IV SCH ×2 (00:22→14:46)
[2022-02-06] MEDS: Clindamycin 600 MG/D5W BAG 600 MG/50 ML BAG IV SCH ×2 (00:22→09:11)
[2022-02-06] MEDS: Lactated Ringers 1000 ml BAG 1,000 ML IV SCH ×2 (03:29→11:10)
[2022-02-06] MEDS: LORazepam 2 mg VIAL 1 ml IV PUSH PRN ×3 (04:38→19:39)
[2022-02-06] MEDS ORDERED: Vancomycin Trough Check NOTE FOLLOW UP ONE (06:00)
[2022-02-06 07:16] LABS: ABS Eosinophils 0.1 10^3/ul (0-0.6); ABS Lymphocytes 0.6 10^3/ul (1.0-4.8); ABS Monocytes 0.2 10^3/ul (0-0.8); ABS Neutrophils 2.7 10^3/ul (1.5-7.7); Eosinophil % 2.2 %; Hematocrit 34 % (35-47); Hemoglobin 11.5 g/dL (12.0-16.0); Lymphocyte % 15.6 %; Mean Corpuscular HGB Conc 34 g/dL (31-36); Mean Corpuscular Hemoglobin 30 pg (27-31); Mean Corpuscular Volume 87 fL (80-97); Mean Platelet Volume 7.6 fL (7.4-10.4); Nucleated Red Blood Cells % 0.1; Platelet Count 138 10^3/uL (150-450); Red Blood Count 3.86 10^6 /uL (3.70-4.87); Red Cell Distribution Width 15 % (10-15); White Blood Count 3.6 10^3/uL (3.5-10.8)
[2022-02-06 07:54] LABS: CKMB ng/mL 8.4 ng/mL (0.6-6.3)
[2022-02-06 07:57] LABS: C Reactive Protein 121.71 mg/L (<8.01); Magnesium 1.7 mg/dL (1.9-2.7); Potassium 3.9 mmol/L (3.5-5.0); eGFR CKD-EPI 125.2 (>60)
[2022-02-06] MEDS ORDERED: cefTRIAXone 1 gm/50 mL D5W 1 GM/50 ML BAG IV SCH (11:00)
[2022-02-06] MEDS ORDERED: Vancomycin per Pharmacy 1 EA NOTE FOLLOW UP PRN (11:04)
[2022-02-06] MEDS ORDERED: Vancomycin 1,000 MG in NS 0.9% 250 ml 250 ML IVPB ONE (12:00)
[2022-02-06] MEDS: metroNIDAZOLE IV 500 MG/100ML 500 MG/100 ML BAG IVPB SCH ×2 (12:00→20:28)
[2022-02-06] MEDS ORDERED: LORazepam 2 mg VIAL 1 ml IV PUSH ONE (13:20)
[2022-02-06] MEDS ORDERED: Lorazepam PYXIS KEY PRN (13:20)
[2022-02-06] MEDS ORDERED: Magnesium Sulfate IV 3 GM in NS 0.9% 100 ml BAG 100 ML IVPB ONE (14:03)
[2022-02-06] MEDS: cefTRIAXone 1 GM Q24H (ADVAN) IVPB SCH (14:58)
[2022-02-06] MEDS ORDERED: Lactated Ringers 1000 ml BAG 1,000 ML IV SCH (17:55)
[2022-02-06] MEDS ORDERED: D5LR 1000 ml BAG 1,000 ML IV SCH (18:00)
[2022-02-06] MEDS: Enoxaparin 40 MG/0.4 ML SYR SUBCUT SCH (22:18)
[2022-02-06] MEDS: Vancomycin 1000 MG in NS 0.9% 250 ML IVPB SCH (22:34)
[2022-02-07] MEDS: metroNIDAZOLE IV 500 MG/100ML 500 MG/100 ML BAG IVPB SCH ×3 (04:08→23:03)
[2022-02-07] MEDS: Vancomycin 1000 MG in NS 0.9% 250 ML IVPB SCH ×2 (06:11→19:06)
[2022-02-07 06:18] LABS: ABS Eosinophils 0.1 10^3/ul (0-0.6); ABS Monocytes 0.3 10^3/ul (0-0.8); ABS Neutrophils 2.4 10^3/ul (1.5-7.7); Eosinophil % 2.6 %; Hematocrit 34 % (35-47); Hemoglobin 11.4 g/dL (12.0-16.0); Lymphocyte % 27.5 %; Mean Corpuscular HGB Conc 34 g/dL (31-36); Mean Corpuscular Hemoglobin 29 pg (27-31); Mean Corpuscular Volume 87 fL (80-97); Mean Platelet Volume 7.6 fL (7.4-10.4); Platelet Count 152 10^3/uL (150-450); Red Cell Distribution Width 15 % (10-15); White Blood Count 3.8 10^3/uL (3.5-10.8)
[2022-02-07 06:32] LABS: Calcium 8.3 mg/dL (8.6-10.3); Phosphorus 3.9 mg/dL (2.5-5.0); Potassium 4.1 mmol/L (3.5-5.0); eGFR CKD-EPI 124.6 (>60)
[2022-02-07 10:56] LABS: TSH Ultra Thyroid Stim Horm 4.7 mcIU/mL (0.34-5.60)
[2022-02-07] MEDS ORDERED: Lidocaine 1% VIAL 10 MG/ML VIAL 30 ML ONE (11:25)
[2022-02-07] MEDS ORDERED: Bupivacaine 0.5% SDV PF 30ML VIAL ONE ×2 (11:26→11:38)
[2022-02-07] MEDS ORDERED: HYDROmorphone 1 MG/1 ML SYRINGE IV PRN (11:50)
[2022-02-07] MEDS ORDERED: fentaNYL 100 mcg/2 ml 50 MCG/ML VIAL IV PRN (11:50)
[2022-02-07] MEDS ORDERED: Ondansetron 4 mg VIAL 2 MG/ML 2 ml VIAL IV PRN (11:50)
[2022-02-07] MEDS ORDERED: Naloxone 0.4 mg VIAL 0.4 mg/ml 1 ml VIAL IV PRN (11:50)
[2022-02-07] MEDS ORDERED: Lidocaine 2% PF 5 ML VIAL ONE (12:15)
[2022-02-07] MEDS ORDERED: Propofol 10 MG/ML 20 ML BTL ONE (12:15)
[2022-02-07] MEDS ORDERED: fentaNYL 100 mcg/2 ml 50 MCG/ML VIAL ONE ×2 (12:26→12:42)
[2022-02-07] MEDS ORDERED: Ondansetron 4 mg VIAL 2 MG/ML 2 ml VIAL ONE (12:28)
[2022-02-07] MEDS ORDERED: Dexamethasone IV 4 MG/ML VIAL 1 ml VIAL ONE (12:28)
[2022-02-07] MEDS ORDERED: Vancomycin Trough Check NOTE FOLLOW UP ONE (13:30)
[2022-02-07] MEDS: cefTRIAXone 1 GM Q24H (ADVAN) IVPB SCH (15:46)
[2022-02-07] MEDS: LORazepam 2 mg VIAL 1 ml IV PUSH PRN (16:59)
[2022-02-07 17:15] LABS: Vancomycin Trough 4.8 mcg/mL; eGFR CKD-EPI 124.6 (>60)
[2022-02-07] MEDS ORDERED: Haloperidol 5 mg/ml SDV IV/IM 5 MG/ML AMP IV SLOW PU ONE (18:22)
[2022-02-07] MEDS: Enoxaparin 40 MG/0.4 ML SYR SUBCUT SCH (23:18)
[2022-02-08] MEDS: Vancomycin 1,250 MG in NS 0.9% 250 ml 250 ML IVPB SCH ×5 (00:32→23:21)
[2022-02-08] MEDS: Sodium Chloride CONC. 4 MEQ/ML 77 MEQ in D10W 1000 ml BAG 1,000 ML IV SCH ×3 (00:33→12:22)
[2022-02-08] MEDS: metroNIDAZOLE IV 500 MG/100ML 500 MG/100 ML BAG IVPB SCH ×2 (09:05→21:03)
[2022-02-08 09:11] LABS: CO2 Carbon Dioxide 22 mmol/L (22-32); Calcium 7.9 mg/dL (8.6-10.3); Chloride 103 mmol/L (101-111); Magnesium 1.8 mg/dL (1.9-2.7); Sodium 136 mmol/L (135-145)
[2022-02-08 09:17] LABS: Blood Urea Nitrogen 9 mg/dL (6-24); Glucose 106 mg/dL (70-100); eGFR CKD-EPI 125.2 (>60)
[2022-02-08 09:26] LABS: Anion Gap 11 mmol/L (2-11)
[2022-02-08 09:43] LABS: ABS Eosinophils 0.1 10^3/ul (0-0.6); ABS Monocytes 0.2 10^3/ul (0-0.8); ABS Neutrophils 2.2 10^3/ul (1.5-7.7); Hematocrit 31 % (35-47); Hemoglobin 10.6 g/dL (12.0-16.0); Lymphocyte % 28.6 %; Mean Corpuscular HGB Conc 34 g/dL (31-36); Mean Corpuscular Hemoglobin 29 pg (27-31); Mean Corpuscular Volume 85 fL (80-97); Mean Platelet Volume 6.9 fL (7.4-10.4); Nucleated Red Blood Cells % 0.1; Platelet Count 169 10^3/uL (150-450); Red Blood Count 3.62 10^6 /uL (3.70-4.87); Red Cell Distribution Width 15 % (10-15); White Blood Count 3.6 10^3/uL (3.5-10.8)
[2022-02-08] MEDS ORDERED: Magnesium Sulfate 2 gm BAG 2 GM/50 ML BAG IVPB ONE (09:54)
[2022-02-08] MEDS: cefTRIAXone 1 gm/50 mL D5W 1 GM/50 ML BAG IV SCH (11:09)
[2022-02-08] MEDS ORDERED: Vancomycin Trough Check NOTE FOLLOW UP ONE (13:30)
[2022-02-08] MEDS: fentaNYL 100 mcg/2 ml 50 MCG/ML VIAL IV SLOW PU PRN ×2 (15:03→20:45)
[2022-02-08] MEDS: Nicotine GUM 4MG FRUIT FLAVOR PO PRN ×2 (20:45→23:18)
[2022-02-08] MEDS: Enoxaparin 40 MG/0.4 ML SYR SUBCUT SCH (20:57)
[2022-02-08] MEDS ORDERED: Methadone ORALSYR CONC LIQ 10 MG/ML PO ONE (23:00)
[2022-02-09] MEDS: metroNIDAZOLE IV 500 MG/100ML 500 MG/100 ML BAG IVPB SCH ×2 (02:35→09:14)
[2022-02-09] MEDS: fentaNYL 100 mcg/2 ml 50 MCG/ML VIAL IV SLOW PU PRN ×3 (04:56→18:16)
[2022-02-09] MEDS: Nicotine GUM 4MG FRUIT FLAVOR PO PRN ×7 (05:19→22:48)
[2022-02-09] MEDS: Vancomycin 1,250 MG in NS 0.9% 250 ml 250 ML IVPB SCH (06:32)
[2022-02-09] MEDS: cefTRIAXone 1 gm/50 mL D5W 1 GM/50 ML BAG IV SCH (10:42)
[2022-02-09] MEDS ORDERED: Vancomycin Trough Check NOTE FOLLOW UP ONE (13:30)
[2022-02-09 14:35] LABS: Vancomycin Trough 17.9 mcg/mL; eGFR CKD-EPI 127.8 (>60)
[2022-02-09] MEDS: Methadone ORALSYR CONC LIQ 10 MG/ML PO SCH (16:37)
[2022-02-09] MEDS: LORazepam 2 mg VIAL 1 ml IV PUSH PRN (20:13)
[2022-02-09] MEDS: Enoxaparin 40 MG/0.4 ML SYR SUBCUT SCH (20:14)
[2022-02-09] MEDS ORDERED: Methadone ORALSYR CONC LIQ 10 MG/ML PO SCH (22:00)
[2022-02-10 05:58] LABS: ABS Eosinophils 0.2 10^3/ul (0-0.6); ABS Monocytes 0.3 10^3/ul (0-0.8); ABS Neutrophils 2.6 10^3/ul (1.5-7.7); Eosinophil % 3.9 %; Hematocrit 34 % (35-47); Hemoglobin 11.6 g/dL (12.0-16.0); Lymphocyte % 23.8 %; Mean Corpuscular HGB Conc 34 g/dL (31-36); Mean Corpuscular Hemoglobin 30 pg (27-31); Mean Corpuscular Volume 88 fL (80-97); Mean Platelet Volume 7.2 fL (7.4-10.4); Platelet Count 157 10^3/uL (150-450); Red Blood Count 3.89 10^6 /uL (3.70-4.87); Red Cell Distribution Width 15 % (10-15); White Blood Count 4.1 10^3/uL (3.5-10.8)
[2022-02-10 06:13] LABS: Calcium 8.4 mg/dL (8.6-10.3); Magnesium 1.7 mg/dL (1.9-2.7); Potassium 3.7 mmol/L (3.5-5.0); Total Bilirubin 0.3 mg/dL (0.2-1.0); eGFR CKD-EPI 130.7 (>60)
[2022-02-10] MEDS ORDERED: Potassium Chlor 20 meq TAB.ER PO ONE (07:38)
[2022-02-10 08:04] LABS: C Reactive Protein 21.05 mg/L (<8.01)
[2022-02-10] MEDS: fentaNYL 100 mcg/2 ml 50 MCG/ML VIAL IV SLOW PU PRN (08:36)
[2022-02-10] MEDS: Methadone ORALSYR CONC LIQ 10 MG/ML PO SCH (08:37)
[2022-02-10] MEDS: Nicotine GUM 4MG FRUIT FLAVOR PO PRN ×3 (09:07→15:47)
[2022-02-10] MEDS: LORazepam 2 mg VIAL 1 ml IV PUSH PRN (13:27)
[2022-02-10] MEDS: cefTRIAXone 1 gm/50 mL D5W 1 GM/50 ML BAG IV SCH (13:27)
[2022-02-10] MEDS ORDERED: cefTRIAXone VIAL 1,000 MG VIAL IM ONE (15:49)
[2022-02-10] MEDS ORDERED: Lidocaine 1% MPF 5 ML VIAL INJ ONE (15:49)
[2022-02-10] MEDS ORDERED: Methadone ORALSYR CONC LIQ 10 MG/ML PO ONE (16:30)
[2022-02-10] MEDS ORDERED: Lidocaine 1% MPF 5 ML VIAL IM ONE (16:38)
[2022-02-10] MEDS ORDERED: Lidocaine 1% MPF 5 ML VIAL ONE (17:00)
[2022-02-10 18:25] VITALS: BP 125/76
[2022-02-11] MEDS ORDERED: Vancomycin Trough Check NOTE FOLLOW UP ONE (06:00)
== END 2022-02-10 16:07 | disposition home or self-care (01) | DRG 720 ==
LOC: ED 15:01 → EDHOLD 18:44 → SUATTDRO 18:44 → EDHOLD 23:55 → MEDTELE 02-05 18:22
PROVIDERS: ADMIT Internal Medicine; ATTEND Family Medicine